=== PATIENT | male | born 1995 | race African-American/Black ===

== ENCOUNTER 2023-04-14 09:37 | Emergency (ER) | payer OTHER ==
[~2023-04-14] VITALS: Ht 175.3 cm; Wt 97.8 kg
[2023-04-14] MEDS ORDERED: MELO7.5T35 PO (11:53)
[2023-04-14 12:10] VITALS: BP 177/72
== END 2023-04-14 12:13 | disposition home or self-care (01) ==
LOC: M ED 09:37
DX: M17.12 Unilateral primary osteoarthritis, left knee (principal); M25.562 Pain in left knee; Z87.828 Personal history of other (healed) physical injury and trauma

== ENCOUNTER 2023-12-14 16:44 | Emergency (ER) | payer OTHER ==
[~2023-12-14] VITALS: Ht 172.7 cm; Wt 95.5 kg
[~2023-12-14 16:44] MED LIST: MELO7.5T35 PO
[2023-12-14] MEDS ORDERED: KETOROLAC 60MG 2ML VIAL IM ONE (20:40)
[2023-12-14 20:50] VITALS: BP 127/69; TEMP 98.1; O2SAT 99
== END 2023-12-14 21:03 | disposition home or self-care (01) ==
LOC: M ED 16:44 → EDBD 16:44 → M ED 21:03
DX: S43.401A Unspecified sprain of right shoulder joint, initial encounter (principal); Y93.F2 Activity, caregiving, lifting; Y92.69 Other specified industrial and construction area as the place of occurrence of the external cause; Y99.0 Civilian activity done for income or pay

== ENCOUNTER 2024-03-08 10:24 | Emergency (ER) | payer OTHER ==
[~2024-03-08] VITALS: Ht 172.7 cm; Wt 91.4 kg
[2024-03-08 10:26] VITALS: BP 135/72; TEMP 97.6; O2SAT 100
[2024-03-08] MEDS: diazePAM 5MG TABLET PO ONE (16:50)
[2024-03-08] MEDS: LIDOCAINE 5% (LIDODERM) PATCH TD ONE (17:28)
[2024-03-08] MEDS: KETOROLAC 30 MG/ML 1ML VIAL IM ONE (17:29)
[2024-03-08] MEDS ORDERED: NAPR-837 PO (18:05)
[2024-03-08] MEDS ORDERED: METH-1164 PO (18:05)
== END 2024-03-08 18:12 | disposition home or self-care (01) ==
LOC: M ED 10:24
DX: M54.50 Low back pain, unspecified (principal); Z79.899 Other long term (current) drug therapy
CPT/HCPCS: 72110; 96372; 99282; J1100; J1885